=== PATIENT | male | born 1945 | race Caucasian/White ===

== ENCOUNTER → 2017-02-11 | Outpatient (CLI) | payer MEDICARE, BC ==
[~2017-02-11] MED LIST: ADVICOR 5001 BOTTLE PO; ADVICOR PO; ASPIRIN PO; B COMPLEX1 EACH PO; CENTRUM240 ML PO; COUMADIN PO; FISH OIL 1,0001 CAP PO; GARLIC OIL PO; LIPOFLAVONOID; LISINOPRIL20 MG PO; LOPRESSOR PO; METFORMIN HCL500 M1 PO; PAXIL PO; PLAVIX PO; PROTONIX PO; ZANTAC PO
--- NOTE | ~2017-02-11 | CT5 ---
[facility] A Service of [facility] / [facility] RADIOLOGY TEXT RESULTS PATIENT: VIOLETTA RUTLEDGE LOCATION: [facility] : 45 UNIT #: [id number] AGE: [address]: Darling Clark MD SEX: M ORDER DR: [id number] [place] [id number] O MR#: [id number] Acc #: [id number] NAME: VIOLETTA RUTLEDGE. : 1945 SEX: M STUDY DATE/TIME: 02/11/2017 9:12 UNIT: [facility] ROOM: STUDY DESCRIPTION: CT Abdomen W Cont Attending Physician: Darling Clark M.D. Referring Physician: Darling Clark M.D. Ordering Physician: Physician Non-Staff Primary Care Physician: Darling Clark M.D. MEDICAL IMAGING REPORT This report is preliminary unless electronic signature is present. EXAM CT abdomen with contrast. INDICATIONS Right-sided abdominal pain 1 week ago. Right-sided abdominal mass since yesterday. PROCEDURE Contrast-enhanced CT of the abdomen and pelvis. This CT exam was performed with one or more of the following radiation dose reduction techniques: automatic exposure control, adjustment of mA and/or kV according to patient size, and iterative reconstruction. COMPARISON 12/29/2013. FINDINGS Abdomen with contras: Included lung bases clear. Liver enlarged, measuring 21.9 cm. No liver or splenic mass. The spleen is upper limits of normal at 13.1 cm. The kidneys, adrenal glands and pancreas unremarkable. A 9 mm nodule in the gallbladder could represent a small stone or polyp. No evidence for gallbladder inflammation. The bowel loops are nondilated. Moderate colonic stool burden. No abdominal mass or adenopathy. 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 The aneurysm sac measures approximately 4 cm. The patient's aneurysm sac previously measured up to 4.9 cm. No aggressive appearing bone lesion. IMPRESSION 1. No acute findings. [facility] A Service [facility] RADIOLOGY TEXT RESULTS PATIENT: VIOLETTA RUTLEDGE LOCATION: [facility] : 45 UNIT #: [id number] AGE: [address]: Darling Clark MD SEX: M ORDER DR: 2. A 9 mm stone versus polyp in the gallbladder. No evidence for an active gallbladder inflammation. 3. Moderate colonic stool burden. 4. No abdominal mass. Dictated by... Alex Chapa M.D. THIS IS AN ELECTRONICALLY VERIFIED REPORT Alex Chapa M.D. at 02/12/2017 2:02 PM EED/gz TD: 02/11/2017 14:38 JOB #: [id number] MEDICAL IMAGING REPORT Page 1 of 1
[2017-02-11 08:35] LABS: POC - CREATININE 1.03 mg/dL (0.64-1.27); POC - GFR >60.0 mL/min (>60)
== END | disposition home or self-care (01) ==
LOC: SCT 08:10
PROVIDERS: Family Medicine
DX: R10.11 Right upper quadrant pain (principal); R19.01 Right upper quadrant abdominal swelling, mass and lump; R93.6 Abnormal findings on diagnostic imaging of limbs
CPT/HCPCS: 74160; 82565; Q9967

== ENCOUNTER → 2017-03-11 | Outpatient (CLI) | payer MEDICARE, BC ==
--- NOTE | ~2017-03-11 | EKG ---
PATIENT: VIOLETTA RUTLEDGE UNIT #: [id number] Ventricular Rate: 63 BPM Atrial Rate: 63 BPM P-R Interval: 196 ms QRS Duration: 106 ms Q-T Interval: 444 ms QTC Calculation(Bezet): 454 ms P Clayton: 110 degrees Calculated R Clayton: 91 degrees Calculated T Clayton: 61 degrees Diagnosis Line: Suspect arm lead reversal, interpretation Diagnosis Line: assumes no reversal Diagnosis Line: Sinus rhythm with marked sinus arrhythmia with Diagnosis Line: junctional escape complexes Diagnosis Line: Rightward axis Diagnosis Line: Nonspecific ST abnormality Diagnosis Line: Abnormal ECG Diagnosis Line: No previous ECGs available Diagnosis Line: Confirmed by SY GOODRICH MD ([id number]) on Diagnosis Line: 03/12/2017 8:30:18 AM INTERPRETING MD: JOLEEN GONZALEZ
[2017-03-11 15:24] LABS: ALBUMIN SERUM 4.4 g/dL (3.5-5.0); BILIRUBIN,TOTAL 0.6 mg/dL (0.2-2.0); BUN/CREATININE RATIO 12.5; CREATININE SERUM 1.2 mg/dL (0.6-1.4); GLOM FILT RATE Estimated 60.5 mL/min (>60); POTASSIUM 4.9 mmol/L (3.5-5.1); PROTEIN TOTAL SERUM 7.4 g/dL (6.0-8.3)
== END | disposition home or self-care (01) ==
LOC: CAMB 13:33
PROVIDERS: Surgery
DX: Z01.818 Encounter for other preprocedural examination (principal); K80.20 Calculus of gallbladder without cholecystitis without obstruction
CPT/HCPCS: 36415; 80053; 93005

== ENCOUNTER → 2017-03-18 | Day surgery (SDC) | payer MEDICARE, BC ==
--- NOTE | ~2017-03-18 | OR ---
Unit #: [id number] #: [id number] Patient: VIOLETTA RUTLEDGE [id number] [address] [address] [id number] O MR#: [id number] NAME: VIOLETTA RUTLEDGE. ROOM: Date of Procedure: 03/18/2017 Admission Date: 03/18/2017 Surgeon: Cezar Ellis III, M.D. : 1945 Attending Physician: Cezar Ellis III, M.D. Primary Care Physician: Darling Clakr M.D. OPERATIVE REPORT PREOPERATIVE DIAGNOSIS Symptomatic cholelithiasis with chronic cholecystitis. POSTOPERATIVE DIAGNOSIS Symptomatic cholelithiasis with chronic cholecystitis. PROCEDURE PERFORMED Laparoscopic cholecystectomy. ANESTHESIA General. SPECIMENS Gallbladder to pathology. COMPLICATIONS None apparent. ESTIMATED BLOOD LOSS Minimal. INDICATIONS FOR PROCEDURE This is a 71-year-old gentleman, who presented to Dr. Nguyen's office with symptomatic gallstones. He is set up for me to do his gallbladder surgery. DESCRIPTION OF PROCEDURE After consent was obtained, the patient was brought to the operating room and placed in the supine position. General anesthetic was administered and his abdomen was prepped and draped in standard surgical fashion. I made a 5-mm incision in the right upper quadrant. I used an Optiview to enter into the peritoneal cavity without any difficulty. CO2 pneumoperitoneum was then established. Next, a second 5-mm port was placed in the supraumbilical region and an 11-mm port was placed in the midepigastric region, and a third 5-mm port was placed in the right lateral subcostal region. I began by retracting this gallbladder superiorly and laterally. I dissected out the cystic duct and cystic artery and after these were carefully identified, I placed 2 clips proximally and one clip distally along both structures and then they were divided. The gallbladder was then taken off the liver bed using the hook cautery. The gallbladder was then extracted through the epigastric port site. I had excellent hemostasis and all needle, sponge, and instrument counts were correct x2. I removed all the trocars and released the Unit #: [id number] #: [id number] Patient: VIOLETTA RUTLEDGE pneumoperitoneum. The incisions were all injected with 0.25% plain Marcaine and I reapproximated the skin edges with interrupted 4-0 Vicryl subcuticular suture. Steri-Strips were then applied. The patient tolerated the procedure without any problems and returned to the recovery room in stable condition. Dictated by... Cezar Ellis III, M.D. VCL/rae TD: 03/19/2017 23:59 JOB #: [id number] OPERATIVE REPORT Page 1 of 1 X Cezar Ellis III, MD PROCEDURE OPERATIVE NOTE
== END | disposition home or self-care (01) ==
LOC: CSUR 07:29
DX: K80.10 Calculus of gallbladder with chronic cholecystitis without obstruction (principal); E11.9 Type 2 diabetes mellitus without complications; F32.9 Major depressive disorder, single episode, unspecified; F17.210 Nicotine dependence, cigarettes, uncomplicated; J44.9 Chronic obstructive pulmonary disease, unspecified; I10 Essential (primary) hypertension; E78.5 Hyperlipidemia, unspecified; I25.10 Atherosclerotic heart disease of native coronary artery without angina pectoris; I48.91 Unspecified atrial fibrillation; I25.2 Old myocardial infarction; J30.9 Allergic rhinitis, unspecified; K21.0 Gastro-esophageal reflux disease with esophagitis; G47.33 Obstructive sleep apnea (adult) (pediatric); Z86.73 Personal history of transient ischemic attack (TIA), and cerebral infarction without residual deficits; Z88.0 Allergy status to penicillin; Z88.8 Allergy status to other drugs, medicaments and biological substances; Z79.84 Long term (current) use of oral hypoglycemic drugs; Z79.899 Other long term (current) drug therapy; Z79.82 Long term (current) use of aspirin; Z79.01 Long term (current) use of anticoagulants; Z95.1 Presence of aortocoronary bypass graft; Z98.890 Other specified postprocedural states
CPT/HCPCS: 82947; 88304; J0330; J1644; J2405; J2710; J3010